=== PATIENT | male | born 1980 | race Hispanic/Latino ===

== ENCOUNTER 2019-05-01 | Emergency (ER) | payer SELFPAY ==
[2019-05-01] MEDS ORDERED: SILVER SULFA1 % EX (16:15)
[2019-05-01] MEDS ORDERED: CEPHALEXIN500 MG PO (16:15)
== END 2019-05-01 16:35 | disposition home or self-care (01) | DRG 935 ==
PROC: 2W2EX4Z Dressing of Right Hand using Bandage (ICD-10-PCS; principal; 2019-05-01)
DX: T23.261A Burn of second degree of back of right hand, initial encounter (principal); T23.231A Burn of second degree of multiple right fingers (nail), not including thumb, initial encounter; T31.0 Burns involving less than 10% of body surface; X10.2XXA Contact with fats and cooking oils, initial encounter; Y93.G3 Activity, cooking and baking; Y92.000 Kitchen of unspecified non-institutional (private) residence as the place of occurrence of the external cause; Y99.9 Unspecified external cause status